=== PATIENT | female | born 1950 | race Caucasian/White ===

== ENCOUNTER 2021-01-03 10:55 | Outpatient (CLI) | payer MEDICARE, SELFPAY ==
--- NOTE | ~2021-01-03 | MR_ITS ---
EXAMINATION: MR shoulder RT wo con DATE: 01/03/2021 11:49 INDICATION: Right shoulder pain TECHNIQUE: Magnetic resonance imaging (MRI) of the right shoulder was performed without intravenous c ontrast. Sequences included axial PD-weighted FS FSE, coronal oblique PD-weighted FS FSE, coronal obl ique T2-weighted FS FSE, sagittal PD-weighted FS FSE, and sagittal T1-weighted SE. COMPARISON: None. FINDINGS: Coracoacromial arch: The acromion undersurface is flat in morphology (type I). The coracoacromial ligament is normal. Mild acromioclavicular osteoarthritis. Rotator cuff: Mild supraspinatus and infraspinatus tendinopathy. Small region of focally increased signal of slight ly less than fluid intensity at the middle facet footplate of the conjoined portion of the tendons wi th slight flattening of the overlying intact bursal surface of the tendon suggesting a very small mil d intrasubstance tear. 8 x 2 x 4 mm intrasubstance ganglion cyst at the distal myotendinous junction of the supraspinatus. No other lesions suspicious for rotator cuff tear. The subscapularis and teres minor tendons are normal. Normal rotator cuff muscle bulk and signal. Biceps tendon, glenoid labrum and glenohumeral cartilage: Long head of the biceps tendon is normal. Degenerative tearing with irregular intrasubstance signal a t the posterior superior glenoid labrum. The posterior and inferior labrum are small also likely sequ cecy of chronic degeneration. There is a more well-defined linear tear at the anterior to anteroinferi or labrum. Partial-thickness cartilage loss with smooth chondral surface along the cephalad third of the glenoid and at the superomedial aspect of the humeral head. Fluid: Physiologic amount of fluid in the glenohumeral joint and biceps tendon sheath. No loose osteochondra l bodies. Small amount of fluid in the subacromial/subdeltoid bursa consistent with mild to moderate bursitis. Bones: Bone alignment is normal. No fracture or pathologic marrow replacing process. Mild cystic change at t he along the posterior facet of the greater tuberosity. IMPRESSION: 1. Mild supraspinatus and infraspinatus tendinopathy with suggestion of a very small mild intrasubsta nce tear at the greater tuberosity insertion of the conjoined portion of the tendon. 2. Mild glenohumeral osteoarthritis with anterior to anteroinferior labral tear and degeneration of t he posterosuperior, posterior and inferior labrum. 3. Mild to moderate subacromial/subdeltoid bursitis. Reviewed, dictated and finalized at location A. IMPRESSION: 1. Mild supraspinatus and infraspinatus tendinopathy with suggestion of a very small mild intrasubstance tear at the greater tuberosity insertion of the conjo ined portion of the tendon. 2. Mild glenohumeral osteoarthritis with anterior to anteroinferior labral tear and degeneration of the posterosuperior, posterior and inferior labrum. 3. Mild to moderate subacromial/subdeltoid bursitis.
== END 2021-01-03 10:56 | disposition home or self-care (01) ==
PROVIDERS: Visit Provider Orthopaedic Surgery
DX: M75.51 Bursitis of right shoulder (principal); M19.011 Primary osteoarthritis, right shoulder
CPT/HCPCS: 73221